=== PATIENT | male | born 1945 | race Caucasian/White ===

== ENCOUNTER 2021-02-24 05:51 | Day surgery (SDC) | payer MEDICARE, SELFPAY ==
--- NOTE | 2021-02-24 | LES_PTH ---
PATIENT: LALITA DINERO LOC: [facility] [place] U#:[id number] AGE/SX: 75/M ROOM: RE02/24/[address]: Dr. Harish Jackman MD : 1945 BED: DIS: 02/24/2021 SPEC #: [id number] RECD: 02/24/21 07:50 STATUS: ISABEL REMarixa #: [id number] ASHTYN: 02/24/21 00:[address]: Harish Jackman DEPT: SURGICAL PATHOLOGY RECD BY: Karena Brar ENTERED: 02/24/21 09:28 SP TYPE: Lesion OTHR DR: Dr. Harish Peck MD Tissues: A - Skin of external ear, NOS B - Skin of external ear, NOS Procedures: Frozen Section (charge) Frozen Section Add'l ([facility]) Surgery Specimen Level IV HEADER OPERATION: Excision basal cell carcinoma left ear, tissue transfer flap PRE-OP DIAGNOSIS: Basal cell carcinoma left ear TISSUE SUBMITTED: A - Basal cell carcinoma left ear, FS at 0746, ink is anterior, B ? Anterior margin basal cell carcinoma left ear, FS at 0816 FROZEN SECTION DIAGNOSIS A. Basal cell carcinoma of ear, left, biopsy: Basal cell carcinoma. The tumor is present at the anterior margin. B. Anterior margin basal cell carcinoma left ear, biopsy: Negative for carcinoma. SJ:tamy 02/24/2021 MICROSCOPIC DIAGNOSIS A. Basal cell carcinoma of ear, left, biopsy: Basal cell carcinoma. See comment. B. Anterior margin basal cell carcinoma left ear, biopsy: Negative for carcinoma. See comment. ALAYNA:tamy 02/27/2021 COMMENT A. The tumor is present at the anterior margin. The anterior margin is positive for tumor only on the frozen section slides. Cartilage is noted in the deeper portion of the both specimens, A & B and is free of tumor. MICROSCOPIC DESCRIPTION Slides are reviewed. GROSS DESCRIPTION A - Received fresh for frozen section diagnosis labeled with the patient's name is a specimen designated basal cell carcinoma of left ear. The specimen consists of a round piece of aguilar-white skin measuring 1.2 x 1.2 x 0.5 cm. The specimen is inked as follows: anterior - black, posterior - blue, superior - green, inferior - yellow. The specimen is serially sectioned and submitted entirely for frozen section diagnosis in two cassettes as follows: 1 - anterior and posterior margins, 2 - rest of the specimen. B - Received fresh for frozen section diagnosis labeled with the patient's name is a specimen designated anterior margin basal cell carcinoma of left ear. The specimen consists of a strip of aguilar-white skin measuring 1.1 x 0.2 x 0.2 cm. The entire specimen is submitted for frozen section diagnosis in one cassette. / ALAYNA:tamy 02/24/21 TC:0 CPT: 99510 x2, 06420 x2, 93647
[2021-02-24 06:20] VITALS: BP 143/76; PULSE 75; RESP 18; TEMP 36.7; O2SAT 100; BMI 22.0
[2021-02-24] MEDS: Lidocaine 1% /Epi 1:100 (20ml) 20 ML Vial (07:50)
[2021-02-24] MEDS: Bacitracin 500 UNITS/GM PACKET (07:50)
--- NOTE | 2021-02-24 08:45 | PCM.OPRPT ---
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 He was desirous of surgical resection although alternative treatment with external beam radiation have been offered. Examination showed a limited basal cell carcinoma not extending to the bony portion of the external auditory canal along the inferior and anterior aspects which seem very amenable to surgical resection. He additionally had a lesion over the left congregation that was suspicious however in the interim this left without evidence of residual disease. The risks, alternatives, potential complications, and benefits were discussed at length and any questions answered to the patient and/or caregiver's satisfaction. Witnessed informed consent was obtained in the office, and the patient and/or caregiver was agreeable to proceed. Procedure went as follows: The patient was notified the preoperative holding brought to the operating room and positioned. The left ear was then prepped and draped in usual sterile fashion. Injected with 1% lidocaine with 100,000 epinephrine was then applied for local anesthesia for a total of 5 mL. After allowing for vasoconstriction, the operative microscope was brought into the field and excision incorporating the visible lesion of the external auditory canal and the prior biopsy site 2 x 2 cm in size was then incised through the skin and underlying cartilage. This was then sharply dissected from the underlying soft tissue and sent for pathologic evaluation. This confirmed basal cell carcinoma with all margins clear with the exception of a close margin anteriorly. An additional strip of skin 1 cm x 2 mm in length was then harvested and sent for repeat evaluation which was clear from any residual disease. Attention was then turned to reconstruction of the defect. An anterior skin flap overlying the tragus and cheek was then developed broadly and an inferiorly based rotational advancement flap developed 2 x 3 cm in length. This was then rotated into the wound defect to reconstruct this area. This was then sutured in position using interrupted 5-0 Monocryl suture. The external auditory canal was then suctioned clear of any debris and discharge and bacitracin ointment applied along the wound edge. The patient was then returned to recovery having tolerated the procedure well without complication. Surgeon: Harish Jackman Type of Anesthesia: Local Specimen's removed: basal cell carcinoma left ear Drains: none Estimated Blood Loss (mL): 0 mL Fluids Replaced: 0 mL Grafts/Implants Used: none Complications none Admit VTE Documentation VTE Present on Admission: No VTE Mechan Device Prophylaxis: None VTE Pharm Prophylaxis ordered?: No Reason prophylaxis not ordered:: Procedure Not Indicated
--- NOTE | 2021-02-24 08:52 | PCM.DC ---
Discharge Instructions Diet Discharge Diet: No restrictions Activity Discharge Activity: Return to Normal Activity Dressing / Incision Call your doctor if your incision/area has: Sudden Increased Bleeding, Increased Pain/ Swelling and Swelling at the incision site Call your doctor if you observe: Fever of 101 or Higher and Uncontrolled pain Suture Line Care: Avoid Pulling/Pushing Cleanse incision/area with: Do not get Incision Wet Follow Up Care Please Follow Up With: Harish Jackman MD When: 2 weeks Test Results: Test results from this visit will be discussed in further detail at your follow-up appointment, if applicable. Discharge Plan Admission Primary Reason for Your Visit: basal cell carcinoma of left ear Attending Provider: Harish Jackman Primary Care Provider: Harish Peck Discharge Orders/Prescriptions Prescriptions: New acetaminophen 500 mg Tablet 500 mg PO Q4H PRN PRN (Reason: Pain Score 1-5/10) Qty: 0 RF: 0 ibuprofen 200 mg Tablet 400 mg PO Q6H PRN PRN (Reason: Pain Score 4-10/10) Qty: 0 RF: 0 Continued multivitamin Tablet 1 tab PO DAILY RF: 0 atorvastatin 20 mg Tablet 20 mg PO DAILY RF: 0 aspirin 325 mg Tablet 325 mg PO DAILY RF: 0 omeprazole 40 mg Capsule,Delayed Release(Dr/Ec) 40 mg PO DAILY RF: 0 allopurinol 300 mg Tablet 300 mg PO DAILY RF: 0 coenzyme Q10 [CoQ-10] 100 mg Capsule 100 mg PO DAILY RF: 0 omega-3 fatty acids Capsule 1,000 mg PO DAILY RF: 0 Referrals / Follow Up: Harish Peck MD [Primary Care Provider] - Disposition Disposition (needs filled in before D/C Order can be placed): Home, Self Care
== END 2021-02-24 09:20 | disposition home or self-care (01) ==
LOC: SDC 05:53 → AC 05:54
PROVIDERS: Referring Provider Otolaryngology; Visit Provider Otolaryngology
PROC: (CPT 14060; principal; 2021-02-24 07:15)
DX: C44.219 Basal cell carcinoma of skin of left ear and external auricular canal (principal); K21.9 Gastro-esophageal reflux disease without esophagitis; H40.9 Unspecified glaucoma; E78.5 Hyperlipidemia, unspecified; Z79.899 Other long term (current) drug therapy
CPT/HCPCS: 14060; 88305; 88331; 88332; J7120